=== PATIENT | female | born 1930 | race Hispanic/Latino ===

== ENCOUNTER 2018-03-24 23:15 | Observation (INO) | payer MEDICARE ==
[2018-03-24 23:16] VITALS: BMI 22.4
[2018-03-25 00:26] LABS: BASO # 0.01 K/mm3 (0.0-2.0); BASO % 0.2 % (0.0-3.0); EOS # 0.3 (0.0-0.7); EOS % 5.3 % (1.5-5.0); GRAN # 2.73 (1.4-6.5); GRAN % 46.2 % (50.0-68.0); HEMOGLOBIN 11.7 g/dL (12.0-16.0); LYMPH # 2.1 (1.2-3.4); LYMPH % 36.2 % (22.0-35.0); MEAN CELL VOLUME 95.7 fl (80.0-105.0); MEAN CORPUSCULAR HEMOGLOBIN 31.6 pg (25.0-35.0); MEAN CORPUSCULAR HGB CONC 33.1 g/dl (31.0-37.0); MEAN PLATELET VOLUME 9.5 fl (7.0-11.0); MONO # 0.7 (0.1-0.6); MONO % 12.1 % (1.0-6.0); RBC 3.7 10^6/uL (3.5-6.1); RED CELL DISTRIBUTION WIDTH 12.9 % (11.5-14.5); WHITE BLOOD COUNT 5.9 10^3/uL (4.5-11.0)
[2018-03-25 00:30] LABS: INR 0.97; PARTIAL THROMBOPLASTIN TIME 25.1 Seconds (25.1-36.5)
[2018-03-25 00:33] LABS: ALB/GLOB RATIO 1.4 (1.1-1.8); ALBUMIN 4.4 g/dL (3.0-4.8); ALT/SGPT 34 U/L (7-56); AST/SGOT 29 U/L (14-36); BLOOD UREA NITROGEN 14 mg/dL (7-21); CALCIUM 9.7 mg/dL (8.4-10.5); GFR NON-AFRICAN AMERICAN > 60
[2018-03-25 00:43] LABS: TROPONIN I < 0.01 ng/mL
--- NOTE | 2018-03-25 00:58 | ED PDOC ---
Arrival/HPI - General Historian: Patient - History of Present Illness Narrative History of Present Illness (Text): 03/25/18 00:53 87yo female with pmhx of hypertension, diabetes who present with complaint of having syncope several times tonight from 1900. States she did not fell to the ground, because it happened while she was seating on a seat. States her eyes has been hurting for few days. Denies focal weakness, visual changes, neck pain, headache, chest pain, SOB, recent URI, tinnitus, nausea, vomiting, abdominal pain, any other complaint. Symptom Onset: Gradual Symptom Course: Unchanged Activities at Onset: Light Context: Home <Mark Michael A - Last Filed: 03/25/18 01:50> <Conrad Oakes - Last Filed: 03/26/18 11:28> - General Chief Complaint: Syncope Past Medical History - Provider Review Nursing Documentation Reviewed: Yes - Infectious Disease Hx of Infectious Diseases: None - Tetanus Immunization Tetanus Immunization: Unknown - Reproductive Menopause: Yes - Cardiac Hx Hypertension: Yes - Endocrine/Metabolic Hx Diabetes Mellitus Type 2: Yes - Psychiatric Hx Psychophysiologic Disorder: No Hx Substance Use: No - Past Surgical History Past Surgical History: Unable to Obtain - Surgical History Hx Cholecystectomy: Yes Hx Hysterectomy: Yes - Anesthesia Hx Anesthesia: Yes - Suicidal Assessment Feels Threatened In Home Enviroment: No <Mark Michael A - Last Filed: 03/25/18 01:50> Family/Social History - Physician Review Nursing Documentation Reviewed: Yes Family/Social History: Unknown Family HX Smoking Status: Unknown If Ever Smoked Hx Alcohol Use: No Hx Substance Use: No Hx Substance Use Treatment: No <Mark Michael A - Last Filed: 03/25/18 01:50> Allergies/Home Meds <Mark Michael A - Last Filed: 03/25/18 01:50> <Conrad Oakes - Last Filed: 03/26/18 11:28> Allergies/Adverse Reactions: Allergies erythromycin base Allergy (Verified 03/24/18 23:42) SWELLING Home Medications: Home Meds Medication Instructions Recorded Confirmed Benazepril HCl [Lotensin] 20 mg PO DAILY 03/24/18 03/25/18 MetFORMIN [glucOPHAGE] 500 mg PO BID 03/24/18 03/25/18 Metoprolol Tartrate [Lopressor] 25 mg PO BID 03/24/18 03/25/18 RX: Aspirin [Aspirin Chewable] 81 mg PO DAILY 03/24/18 03/25/18 amLODIPine [Norvasc] 10 mg PO DAILY 03/24/18 03/25/18 Review of Systems - Physician Review All systems were reviewed & negative as marked: Yes - Review of Systems Constitutional: Normal. absent: Fevers Eyes: Normal ENT: Normal Respiratory: Normal Cardiovascular: Normal Genitourinary Female: Normal Musculoskeletal: Normal Skin: Normal Neurological: Other (Syncope) Endocrine: Normal Hemo/Lymphatic: Normal Psychiatric: Normal <Diru,Happiness A - Last Filed: 03/25/18 01:50> Physical Exam Vital Signs Reviewed: Yes Vital Signs Temp Pulse Resp BP Pulse Ox 03/25/18 00:20 80 17 163/82 H 98 03/24/18 23:36 97.6 F 94 H 18 206/86 H 98 Temperature: Afebrile Blood Pressure: Hypertensive Pulse: Regular Respiratory Rate: Normal Appearance: Positive for: Well-Appearing, Non-Toxic, Comfortable Pain Distress: None Mental Status: Positive for: Alert and Oriented X 3 - Systems Exam Head: Present: Atraumatic, Normocephalic Pupils: Present: PERRL Extroacular Muscles: Present: EOMI Conjunctiva: Present: Normal Mouth: Present: Moist Mucous Membranes Neck: Present: Normal Range of Motion Respiratory/Chest: Present: Clear to Auscultation, Good Air Exchange. No: Respiratory Distress, Accessory Muscle Use Cardiovascular: Present: Regular Rate and Rhythm, Normal S1, S2. No: Murmurs Abdomen: No: Tenderness, Distention, Peritoneal Signs Back: Present: Normal Inspection Upper Extremity: Present: Normal Inspection. No: Cyanosis, Edema Lower Extremity: Present: Normal Inspection. No: Edema Neurological: Present: GCS=15, CN II-XII Intact, Speech Normal, Motor Func Grossly Intact, Normal Sensory Function, Normal Cerebellar Funct, Norm Deep Tendon Reflexes, Gait Normal, Memory Normal, Normal 2Pt Descrimination, Other (No focal neurological deficit) Skin: Present: Warm, Dry, Normal Color. No: Rashes Psychiatric: Present: Alert, Oriented x 3, Normal Insight, Normal Concentration <Diru,Happiness A - Last Filed: 03/25/18 01:50> Vital Signs Temp Pulse Resp BP Pulse Ox 03/25/18 01:05 75 17 155/82 H 98 03/25/18 00:20 80 17 163/82 H 98 03/24/18 23:36 97.6 F 94 H 18 206/86 H 98 <Conrad Oakes - Last Filed: 03/26/18 11:28> Medical Decision Making ED Course and Treatment: 03/25/18 01:50 87yo female in ED for multiple syncopal episodes since 1900. Labs Head Ct Chest xray EKG Head CT will reassess Pt have no focal neurological deficit in ED EKG NSR @ 87bpm Prolonged QT Chest xray NAD Labs was unremarkable Head CT - No acute finding PT was admitted to r/o cardiac or neuro etiology. Case was DW Dr. Nieto who is covering Dr. Pitts and pt was admitted. Plan and result was DW the pt and she agreed. - Lab Interpretations Lab Results: 03/25/18 00:09 03/25/18 00:09 Lab Results 03/25/18 00:09: Sodium 139, Potassium 3.9, Chloride 104, Carbon Dioxide 26, Anion Gap 13, BUN 14, Creatinine 0.7, Est GFR ( Amer) > 60, Est GFR (Non- Af Amer) > 60, Random Glucose 135 H, Calcium 9.7, Phosphorus 3.8, Magnesium 2.0, Total Bilirubin 0.5, AST 29, ALT 34, Alkaline Phosphatase 92, Lactate Dehydrogenase 443, Total Creatine Kinase 78, Troponin I < 0.01, Total Protein 7.6, Albumin 4.4, Globulin 3.2, Albumin/Globulin Ratio 1.4 03/25/18 00:09: PT 11.0, INR 0.97, APTT 25.1 03/25/18 00:09: WBC 5.9, RBC 3.70, Hgb 11.7 L, Hct 35.4 L, MCV 95.7, MCH 31.6, MCHC 33.1, RDW 12.9, Plt Count 212, MPV 9.5, Gran % 46.2 L, Lymph % (Auto) 36.2 H, [place] % (Auto) 12.1 H, Eos % (Auto) 5.3 H, Baso % (Auto) 0.2, Gran # 2.73, Lymph # (Auto) 2.1, [place] # (Auto) 0.7 H, Eos # (Auto) 0.3, Baso # (Auto) 0.01 - RAD Interpretation Narrative RAD Interpretations (Text): CT Head: There is normal configuration of sella turcica. There are no intra or extra- axial collections. There is no mass effect or midline shift. There is no evidence of hematoma formation. No hydrocephalus is present. The ventricles are symmetrical. No abnormal calcifications are present. There is diffuse age-appropriate cerebellar and cerebral atrophy with proportion ally dilated ventricles and cortical sulci. There are bilateral periventricular and subcortical white matter hypolucencies compatible with mild chronic microvascular disease. Otherwise, no significant focal abnormalities are seen either in the posterior fossa or supratentorial compartment. IMPRESSION: 1. Age-appropriate cerebellar and cerebral atrophy. 2. Mild chronic microvascular disease. 3. No evidence of acute intracranial pathology. Thank you for your kind referral of this patient. Electronically signed on Mar 25, 2018 1:24:05 AM EST by: Vicky Cartagena M.D., Certified by ABR, MSK, Neuroradiology Radiology Orders: 03/24/18 23:51 HEAD W/O CONTRAST [CT] Stat 03/24/18 23:52 CHEST PORTABLE [RAD] Stat Canceling Machine Operator: Radiologist <Mark Michael - Last Filed: 03/25/18 01:50> - Lab Interpretations Lab Results: 03/25/18 00:09 03/25/18 00:09 Lab Results 03/25/18 00:09: TSH 3rd Generation 4.57 03/25/18 00:09: Sodium 139, Potassium 3.9, Chloride 104, Carbon Dioxide 26, Anion Gap 13, BUN 14, Creatinine 0.7, Est GFR ( Amer) > 60, Est GFR (Non- Af Amer) > 60, Random Glucose 135 H, Calcium 9.7, Phosphorus 3.8, Magnesium 2.0, Total Bilirubin 0.5, AST 29, ALT 34, Alkaline Phosphatase 92, Lactate Dehydrogenase 443, Total Creatine Kinase 78, Troponin I < 0.01, Total Protein 7.6, Albumin 4.4, Globulin 3.2, Albumin/Globulin Ratio 1.4 03/25/18 00:09: PT 11.0, INR 0.97, APTT 25.1 03/25/18 00:09: WBC 5.9, RBC 3.70, Hgb 11.7 L, Hct 35.4 L, MCV 95.7, MCH 31.6, MCHC 33.1, RDW 12.9, Plt Count 212, MPV 9.5, Gran % 46.2 L, Lymph % (Auto) 36.2 H, [place] % (Auto) 12.1 H, Eos % (Auto) 5.3 H, Baso % (Auto) 0.2, Gran # 2.73, Ly mph # (Auto) 2.1, [place] # (Auto) 0.7 H, Eos # (Auto) 0.3, Baso # (Auto) 0.01 - RAD Interpretation Radiology Orders: 03/24/18 23:51 HEAD W/O CONTRAST [CT] Stat 03/24/18 23:52 CHEST PORTABLE [RAD] Stat - Medication Orders Current Medication Orders: Discontinued Medications Amlodipine Besylate (Norvasc) 10 mg PO DAILY [facility] Last Admin: 03/25/18 09:56 Dose: 10 mg MAR Blood Pressure Document 03/25/18 09:56 CD (Rec: 03/25/18 09:56 CD [facility] [id number] Blood Pressure Blood Pressure (100/60-150/90) 190/96 Aspirin (Aspirin Chewable) 81 mg PO DAILY [facility] Last Admin: 03/25/18 09:56 Dose: 81 mg Guaifenesin/Dextromethorphan (Mucinex-Dm 600-30 Mg) 1 tab PO BID [facility] Last Admin: 03/25/18 09:56 Dose: 1 tab Lisinopril (Zestril) 20 mg PO DAILY [facility] Last Admin: 03/25/18 09:56 Dose: 20 mg MAR Pulse and Blood Pressure Document 03/25/18 09:56 CD (Rec: 03/25/18 09:56 CD [facility] [id number] Pulse Pulse Rate (60-90) 105 Blood Pressure Blood Pressure (100/60-150/90) 190/96 Metformin HCl (Glucophage) 500 mg PO BID [facility] Last Admin: 03/25/18 09:56 Dose: 500 mg Metoprolol Tartrate (Lopressor) 5 mg IVP ONCE ONE Stop: 03/25/18 05:44 Last Admin: 03/25/18 05:52 Dose: 5 mg IVP Administration Document 03/25/18 05:52 CDL (Rec: 03/25/18 05:53 CDL [facility] [id number] Charges for Administration # of IVP Administrations 1 MAR Pulse and Blood Pressure Document 03/25/18 05:52 CDL (Rec: 03/25/18 05:53 CDL [facility] [id number]) Pulse Pulse Rate (60-90) 142 Blood Pressure Blood Pressure (100/60-150/90) 184/106 Metoprolol Tartrate (Lopressor) 25 mg PO BID [facility] Last Admin: 03/25/18 09:56 Dose: 25 mg MAR Pulse and Blood Pressure Document 03/25/18 09:56 CD (Rec: 03/25/18 09:56 CD [facility] [id number]) Pulse Pulse Rate (60-90) 105 Blood Pressure Blood Pressure (100/60-150/90) 190/96 <Conrad Oakes - Last Filed: 03/26/18 11:28> - PA / LAMINATING MACHINE OPERATOR / Resident Statement / has reviewed & agrees with the documentation as recorded. <Conrad Oakes - Last Filed: 03/26/18 11:28> Disposition/Present on Arrival - Present on Arrival Any Indicators Present on Arrival: No History of DVT/PE: No History of Uncontrolled Diabetes: No Urinary Catheter: No History of Decub. Ulcer: No History Surgical Site Infection Following: None - Disposition Have Diagnosis and Disposition been Completed?: Yes Disposition Time: 00:40 Patient Plan: Admission <Mark Michael - Last Filed: 03/25/18 01:50> <Conrad Oakes - Last Filed: 03/26/18 11:28> - Disposition Diagnosis: Syncope Disposition: HOSPITALIZED Condition: FAIR
[2018-03-25 01:50] LABS: PH,URINE 6.5 (4.7-8.0); URINE BILIRUBIN NEGATIVE (NEGATIVE); URINE BLOOD TRACE-INTACT (NEGATIVE); URINE GLUCOSE (UA) NEGATIVE (NEGATIVE); URINE LEUKOCYTE ESTERASE SMALL Leu/uL (NEGATIVE); URINE PROTEIN NEGATIVE mg/dL (<30 mg/dL); URINE UROBILINOGEN 0.2 E.U./dL (<1 E.U./dL)
[2018-03-25 01:56] LABS: URINE APPEARANCE SL CLOUDY (CLEAR); URINE COLOR YELLOW (YELLOW)
[2018-03-25 02:07] LABS: URINE RBC 0 - 2 /hpf (0-2)
[2018-03-25 02:08] LABS: URINE BACTERIA FEW (NEG)
[2018-03-25] MEDS ORDERED: Metoprolol 1 mg/ml Inj IVP ONE (05:43)
[2018-03-25 05:59] VITALS: RESP 18; TEMP 98.8; O2SAT 97
--- NOTE | 2018-03-25 09:08 | RAD ---
Date of service: 03/25/2018 HISTORY: admission COMPARISON: 07/30/2016 FINDINGS: LUNGS: No active pulmonary disease. PLEURA: No significant pleural effusion identified, no pneumothorax apparent. CARDIOVASCULAR: No aortic atherosclerotic calcification present. Normal cardiac size. No pulmonary vascular congestion. OSSEOUS STRUCTURES: No significant abnormalities. VISUALIZED UPPER ABDOMEN: Normal. OTHER FINDINGS: None. IMPRESSION: No active disease.
[2018-03-25 09:59] VITALS: BP 190/96
[2018-03-25] MEDS ORDERED: guaiFENesin-DM 600-30 mg ER Tab PO SCH (10:00)
--- NOTE | 2018-03-25 10:15 | CT ---
Date of service: 03/25/2018 PROCEDURE: CT HEAD WITHOUT CONTRAST. HISTORY: syncope COMPARISON: 11/23/2014 TECHNIQUE: Axial computed tomography images were obtained through the head/brain without intravenous contrast. Radiation dose: Total exam DLP = 673.34 mGy-cm. This CT exam was performed using one or more of the following dose reduction techniques: Automated exposure control, adjustment of the mA and/or kV according to patient size, and/or use of iterative reconstruction technique. FINDINGS: HEMORRHAGE: No intracranial hemorrhage. BRAIN: No mass effect or edema. No atrophy or chronic microvascular ischemic changes. VENTRICLES: Unremarkable. No hydrocephalus. CALVARIUM: Unremarkable. PARANASAL SINUSES: Unremarkable as visualized. No significant inflammatory changes. MASTOID AIR CELLS: Unremarkable as visualized. No inflammatory changes. OTHER FINDINGS: The report concurs with the preliminary [facility] report IMPRESSION: No acute intracranial findings
--- NOTE | 2018-03-25 10:29 | HP ---
DATE OF EXAM: 03/25/2018 HISTORY OF PRESENT ILLNESS: Mrs. Woodruff is a 87-year-old female admitted to the hospital with syncope. She was sitting in the chair. She felt lightheaded. She did not fell. Denies any focal weakness. No headache. No nausea. No vomiting. No vision changes. She has history of hypertension uncontrolled during this hospitalization. Systolic blood pressure was 200 mmHg in the ER. No fever. No cough with expectoration. She has diabetes mellitus type 2, currently controlled on metformin only. No complaints right now. PAST MEDICAL HISTORY: Diabetes mellitus type 2 and hypertension. PAST SURGICAL HISTORY: Cholecystectomy and hysterectomy. FAMILY HISTORY: Noncontributory. PERSONAL HISTORY: Never smoked. No history of alcohol abuse. ALLERGIES: ERYTHROMYCIN. HOME MEDICATION: Aspirin 81 mg daily, benazepril 20 mg daily, metformin 500 mg p.o. b.i.d., metoprolol 25 mg p.o. b.i.d., amlodipine 10 mg daily. REVIEW OF SYSTEM: As per HPI. Rest of 12-point review of systems reviewed, negative. PHYSICAL EXAMINATION: GENERAL: Comfortable in bed in no acute distress. VITAL SIGNS: Temperature 97.6, heart rate 80 per minute, respiratory 18 per minute, blood pressure 160/80 and pulse ox is 98% on room air. HEENT: Pallor positive. NECK: No lymphadenopathy. CHEST: Air entry present and equal bilaterally. No added sounds. CARDIOVASCULAR: S1 and S2 normal. No murmur. No gallop. ABDOMEN: Soft and nontender. No hepatosplenomegaly. EXTREMITIES: No edema. REAL ESTATE SALES AGENT: Alert and oriented x3. No focal sensory motor deficit. Cranial nerves intact. SKIN: Warm . No rashes. SPINE: Nontender. LABORATORY DATA: White count 5.9, hemoglobin 11.7, hematocrit 35.4 and platelet 212,000. Sodium 139, potassium 3.9, BUN 14, creatinine 0 7 and glucose 135. Bilirubin 0.5, AST 29, ALT 34 and alkaline phosphatase 92. EKG normal sinus rhythm. CT head, age appropriate cerebellar and cerebral atrophy, chronic microvascular changes. No evidence of acute intracranial pathology. ASSESSMENT: 1. Syncope. 2. Anemia. 3. Uncontrolled hypertension. PLAN: She will be admitted to the hospital. We will continue the home meds, metoprolol 25 mg p.o. b.i.d. and Norvasc 10 mg daily. We will continue metformin 500 mg p.o. b.i.d. and aspirin 81 mg daily. Cardiac enzyme within normal limits. CT head unremarkable. We will observe for next 24 hours, if stable we will consider discharge home. Urine culture sent. UA mildly positive leukocyte esterase. Janine Nieto MD
[2018-03-25 12:22] VITALS: PULSE 93
--- NOTE | 2018-03-25 13:37 | DS ---
Please refer to the detailed note dictated today. She was admitted with vague complaints of having blackout for a fraction of a second which happened twice, did not have any residual weakness. CAT scan of the head was unremarkable. Troponins were negative. She is being discharged to home in a stable condition. She will follow up with the PCP, Dr. Portillo. Recommended follow up with Neurology, Dr. Horan, and follow up with Cardiology, Dr. Jim, her regular telecom specialist. She is being discharged to home in a stable condition. Detailed report of the discharge note dictated earlier under same date. Janine Nieto MD
--- NOTE | 2018-03-26 08:10 | CARD ---
APPROVED REPORT Date of service: 03/24/2018 EKG Measurement Heart [id number] <Conclusion> Normal sinus rhythm Prolonged QTc
== END 2018-03-25 14:29 | disposition home or self-care (01) ==
LOC: ED 23:15 → ERH 03-25 00:46 → 2RSO 03-25 01:54
PROVIDERS: ADMIT Internal Medicine Nephrology; ATTEND Internal Medicine Nephrology
DX: R55 Syncope and collapse (principal); I10 Essential (primary) hypertension; E11.9 Type 2 diabetes mellitus without complications; D64.9 Anemia, unspecified; Z79.82 Long term (current) use of aspirin; Z79.84 Long term (current) use of oral hypoglycemic drugs
CPT/HCPCS: 36415; 70450; 71045; 80053; 81001; 82550; 82948; 83615; 83735; 84100; 84443; 84484; 85025; 85610; 85730; 87086; 93005; 99285; G0378

== ENCOUNTER 2018-06-08 12:54 | Outpatient (CLI) | payer MEDICARE | END 2018-06-08 12:55 | disposition home or self-care (01) | LOC: LAB 12:54 ==

== ENCOUNTER 2018-06-18 10:06 | Outpatient (CLI) | payer MEDICARE | END 2018-06-18 10:07 | disposition home or self-care (01) | LOC: RAD 10:06 | DX: R55 Syncope and collapse (principal) ==

== ENCOUNTER 2018-07-29 09:48 | Emergency (ER) | payer MEDICARE ==
[2018-07-29 10:06] VITALS: BMI 23.6
[2018-07-29 10:22] VITALS: RESP 18; TEMP 98.2
--- NOTE | 2018-07-29 11:19 | ED PDOC ---
Arrival/HPI - General Chief Complaint: High Blood Pressure Time Seen by Provider: 07/29/18 10:05 Historian: Patient - History of Present Illness Narrative History of Present Illness (Text): 07/29/18 11:14 87 year old female, whose past medical history includes hypertension and diabetes, presents to the ED for high blood pressure since today. Patient reports her "face gets hot" secondary to hypertension. Patient notes that she is compliant with her hypertension medication, but that she has started a new one yesterday, upon request of her dairy nutrition consultant. Patient denies any chest pain, shortness of breath, headache, fever, chills, cough, nausea, vomiting, diarrhea, constipation, abdominal pain, dizziness or lightheadedness. PMD: Dr. Portillo Records Management Associate: Dr. Wilkinson Time/Duration: 4-6 hours Symptom Onset: Gradual Symptom Course: Unchanged Activities at Onset: Light Context: Home Past Medical History - Provider Review Nursing Documentation Reviewed: Yes - Infectious Disease Hx of Infectious Diseases: None - Tetanus Immunization Tetanus Immunization: Unknown - Reproductive Menopause: Yes - Cardiac Hx Cardiac Disorders: Yes Hx Hypertension: Yes - Pulmonary Hx Respiratory Disorders: No - Neurological Hx Neurological Disorder: No - HEENT Hx HEENT Disorder: No - Renal Hx Renal Disorder: No - Endocrine/Metabolic Hx Endocrine Disorders: Yes Hx Diabetes Mellitus Type 2: Yes - Hematological/Oncological Hx Blood Disorders: No - Integumentary Hx Dermatological Disorder: No - Musculoskeletal/Rheumatological Hx Musculoskeletal Disorders: No Hx Falls: No - Gastrointestinal Hx Gastrointestinal Disorders: No - Genitourinary/Gynecological Hx Genitourinary Disorders: No - Psychiatric Hx Psychophysiologic Disorder: No Hx Substance Use: No - Past Surgical History Past Surgical History: Unable to Obtain - Surgical History Hx Cholecystectomy: Yes Hx Hysterectomy: Yes - Anesthesia Hx Anesthesia: Yes Hx Anesthesia Reactions: No Hx Malignant Hyperthermia: No - Suicidal Assessment Feels Threatened In Home Enviroment: No Family/Social History - Physician Review Nursing Documentation Reviewed: Yes Family/Social History: Unknown Family HX Smoking Status: Never Smoked Hx Alcohol Use: No Hx Substance Use: No Hx Substance Use Treatment: No Allergies/Home Meds Allergies/Adverse Reactions: Allergies erythromycin base Allergy (Verified 07/29/18 10:22) SWELLING Home Medications: Home Meds Medication Instructions Recorded Confirmed Aspirin [Aspirin Chewable] 81 mg PO DAILY 03/24/18 07/29/18 Benazepril HCl [Lotensin] 20 mg PO DAILY 03/24/18 07/29/18 MetFORMIN [glucOPHAGE] 500 mg PO BID 03/24/18 07/29/18 Metoprolol Tartrate [Lopressor] 25 mg PO BID 03/24/18 07/29/18 amLODIPine [Norvasc] 10 mg PO DAILY 03/24/18 07/29/18 Review of Systems - Physician Review All systems were reviewed & negative as marked: Yes - Review of Systems Constitutional: absent: Fevers Eyes: absent: Vision Changes ENT: absent: Hearing Changes, Sore Throat, Rhinorrhea Respiratory: absent: SOB, Cough Cardiovascular: Other (Elevated blood pressure). absent: Chest Pain Gastrointestinal: absent: Abdominal Pain, Constipation, Diarrhea, Nausea, Vomiting Genitourinary Female: absent: Dysuria, Vaginal Bleeding Musculoskeletal: absent: Back Pain, Neck Pain Skin: absent: Rash Neurological: absent: Headache, Dizziness Endocrine: absent: Diaphoresis Hemo/Lymphatic: absent: Adenopathy Psychiatric: absent: Anxiety, Depression Physical Exam - Physical Exam Narrative Physical Exam (Text): 07/29/18 11:24 Gen: VS reviewed, alert, well developed, well nourished, nontoxic, mild distress ENT: normal pharynx Eye: EOMI, PERRL Neck: no JVD, supple, no adenopathy CV: regular rate, regular rhythm, no rubs, no murmur, no gallops, S1, S2, pulses, equal and strong Pulm: no distress, clear to auscultation, no wheeze, no rhonchi, breath sounds equal, no rales Abd: soft, nontender, no guarding, no rebound, no rigidity, normal bowel sounds Ext: no edema Skin: good color, no rash, no cyanosis Psych: responds appropriately to questions, normal affect Neuro: oriented x 3, CN2-12 intact grossly, motor intact, sensation intact Vital Signs Reviewed: Yes Vital Signs Temp Pulse Resp BP Pulse Ox 07/29/18 11:11 98.2 F 89 18 155/74 H 99 07/29/18 10:18 98.2 F 93 H 18 96/60 L 98 Temperature: Afebrile Blood Pressure: Normal Pulse: Regular Respiratory Rate: Normal Appearance: Positive for: Well-Appearing, Non-Toxic, Comfortable Pain Distress: Mild Mental Status: Positive for: Alert and Oriented X 3 Medical Decision Making ED Course and Treatment: 07/29/18 11:25 Impression: 87 year old female who presents to the ED for hypertension. Plan: -- Monitor BP -- Reassess and disposition Prior Visits: Notes and results from previous visits were reviewed. Patient was last seen in the emergency department on 03/25/18. Progress Notes: 07/29/18 11:56 07/29/18 12:22 patient remained symptom free during ED course. blood pressure stable throughout ED course. patient to follow up with pcp and cardiology for elevated blood pressure.no intervention indicated for blood pressure stable for dc. - EKG Interpretation EKG Interpretation (Text): 07/29/18 10:10 NSR @ 94 bpm, nml qrs, nml axis, no acute sttw abn. Interpreted by ED Physician: Yes Type: 12 lead EKG - Scribe Statement The provider has reviewed the documentation as recorded by the Scribe Jennifer lizarraga with [facility]. All medical record entries made by the Scribe were at my direction and personally dictated by me. I have reviewed the chart and agree that the record accurately reflects my personal performance of the history, physical exam, medical decision making, and the department course for this patient. I have also personally directed, reviewed, and agree with the discharge instructions and disposition. Disposition/Present on Arrival - Present on Arrival Any Indicators Present on Arrival: No History of DVT/PE: No History of Uncontrolled Diabetes: No Urinary Catheter: No History of Decub. Ulcer: No History Surgical Site Infection Following: None - Disposition Have Diagnosis and Disposition been Completed?: Yes Diagnosis: Hypertension Disposition: HOME/ ROUTINE Disposition Time: 12:23 Patient Plan: Discharge Condition: STABLE Discharge Instructions (ExitCare): High Blood Pressure (DC) Additional Instructions: follow up with your regular doctor as soon as possible. return for any new or worsening symptoms. Referrals: Paresh Portillo MD [Primary Care Provider] - Follow up with primary Forms: [employer] (Brazilian)
[2018-07-29 12:39] VITALS: BP 165/89; PULSE 73; O2SAT 97
--- NOTE | 2018-07-29 16:10 | CARD ---
APPROVED REPORT Date of service: 07/29/2018 EKG Measurement Heart [id number] <Conclusion> Normal sinus rhythm Normal ECG
== END 2018-07-29 12:53 | disposition home or self-care (01) ==
LOC: ED 09:48
DX: I10 Essential (primary) hypertension (principal)

== ENCOUNTER 2018-07-30 07:43 | Emergency (ER) | payer MEDICARE ==
[2018-07-30 07:44] VITALS: BMI 23.6
[2018-07-30 07:52] VITALS: RESP 18; O2SAT 99
[2018-07-30] MEDS ORDERED: Mineral Oil Enema 135 ml RC ONE (07:55)
[2018-07-30] MEDS ORDERED: Magnesium Citrate Oral SOL (300 ml) PO ONE (07:55)
--- NOTE | 2018-07-30 08:20 | ED PDOC ---
Arrival/HPI - General Chief Complaint: GI Problem Time Seen by Provider: 07/30/18 07:49 Historian: Patient - History of Present Illness Narrative History of Present Illness (Text): 07/30/18 08:17 87 year old female, with a past medical history of hypertension and diabetes presenting to the emergency department complaining of difficulty moving bowels for 1 week. Patient reports she was sent by Dr. Saravia. She reports ingesting warm prune juice 4 days ago which assisted in passing stool. Since last night, she reports no bowel movement. She reports thin stool for 1 month. Patient denies any abdominal pain, but endorses a "strangling" and "twisting" sensation. She also denies having history of bowel obstruction or ever having a colonoscopy performed. Patient endorses she eats and drinks normally, but denies any fever, shortness of breath, vomiting, abdominal pain, chest pain or any other complaints. Patient reports compliance with her medications. PCP: Dr. Portillo Specialist: Dr. Saravia(GI) Time/Duration: 1 week Symptom Onset: Gradual Symptom Course: Unchanged Activities at Onset: Light Context: Home Past Medical History - Provider Review Nursing Documentation Reviewed: Yes - Travel History Have you recently traveled outside [place] w/in the past 3 mons?: No - Infectious Disease Hx of Infectious Diseases: None - Tetanus Immunization Tetanus Immunization: Unknown - Cardiac Hx Cardiac Disorders: Yes Hx Hypertension: Yes - Pulmonary Hx Respiratory Disorders: No - Neurological Hx Neurological Disorder: No - HEENT Hx HEENT Disorder: No - Renal Hx Renal Disorder: No - Endocrine/Metabolic Hx Endocrine Disorders: Yes Hx Diabetes Mellitus Type 2: Yes - Hematological/Oncological Hx Blood Disorders: No - Integumentary Hx Dermatological Disorder: No - Musculoskeletal/Rheumatological Hx Musculoskeletal Disorders: No Hx Falls: No - Gastrointestinal Hx Gastrointestinal Disorders: No - Genitourinary/Gynecological Hx Genitourinary Disorders: No - Psychiatric Hx Psychophysiologic Disorder: No Hx Substance Use: No - Past Surgical History Past Surgical History: Unable to Obtain - Surgical History Hx Cholecystectomy: Yes Hx Hysterectomy: Yes - Anesthesia Hx Anesthesia: Yes Hx Anesthesia Reactions: No Hx Malignant Hyperthermia: No - Suicidal Assessment Feels Threatened In Home Enviroment: No Family/Social History - Physician Review Nursing Documentation Reviewed: Yes Family/Social History: Unknown Family HX Smoking Status: Never Smoked Hx Alcohol Use: No Hx Substance Use: No Hx Substance Use Treatment: No Allergies/Home Meds Allergies/Adverse Reactions: Allergies erythromycin base Allergy (Verified 07/29/18 10:22) SWELLING Home Medications: Home Meds Medication Instructions Recorded Confirmed Aspirin [Aspirin Chewable] 81 mg PO DAILY 03/24/18 07/29/18 Benazepril HCl [Lotensin] 20 mg PO DAILY 03/24/18 07/29/18 MetFORMIN [glucOPHAGE] 500 mg PO BID 03/24/18 07/29/18 Metoprolol Tartrate [Lopressor] 25 mg PO BID 03/24/18 07/29/18 amLODIPine [Norvasc] 10 mg PO DAILY 03/24/18 07/29/18 Review of Systems - Physician Review All systems were reviewed & negative as marked: Yes - Review of Systems Constitutional: absent: Fevers Respiratory: absent: SOB, Cough Cardiovascular: absent: Chest Pain Gastrointestinal: Stool Changes (thin). absent: Abdominal Pain, Nausea, Vomiting Musculoskeletal: absent: Back Pain, Neck Pain Neurological: absent: Headache, Dizziness Endocrine: absent: Diaphoresis Physical Exam Vital Signs Reviewed: Yes Vital Signs Temp Pulse Resp BP Pulse Ox 07/30/18 07:48 97.9 F 89 18 153/98 H 99 Temperature: Afebrile Blood Pressure: Hypertensive Pulse: Regular Respiratory Rate: Normal Appearance: Positive for: Well-Appearing, Non-Toxic, Comfortable Pain Distress: None Mental Status: Positive for: Alert and Oriented X 3 - Systems Exam Head: Present: Atraumatic, Normocephalic Pupils: Present: PERRL Extroacular Muscles: Present: EOMI Conjunctiva: Present: Normal Mouth: Present: Moist Mucous Membranes Neck: Present: Normal Range of Motion Respiratory/Chest: Present: Clear to Auscultation, Good Air Exchange. No: Respiratory Distress, Accessory Muscle Use Cardiovascular: Present: Regular Rate and Rhythm, Normal S1, S2. No: Murmurs Abdomen: Present: Other (periumbilical pain). No: Tenderness, Distention, Peritoneal Signs, Guarding Back: Present: Normal Inspection Upper Extremity: Present: Normal Inspection. No: Cyanosis, Edema Lower Extremity: Present: Normal Inspection. No: Edema Neurological: Present: GCS=15, CN II-XII Intact, Speech Normal Skin: Present: Warm, Dry, Normal Color. No: Rashes Psychiatric: Present: Alert, Oriented x 3, Normal Insight, Normal Concentration Medical Decision Making ED Course and Treatment: 07/30/18 08:15 Impression: 87 year old female presents to the emergency department complaining of difficulty moving bowels for 1 week. Differential Diagnosis included but are not limited to: --Constipation --SBO Plan: -- Magnesium citrate -- X-Ray abdomen -- Mineral oil -- Urinalysis -- X-ray abdomen -- IV Fluids --Senna --Zofran -- Labs -- Reassess and disposition Prior Visits: Notes and results from previous visits were reviewed. Progress Notes: 07/30/18 10:21 Patient states she was able to move bowels a little bit. She reports some nausea and some fullness. Zofran and Senna ordered. 07/30/18 14:43 Attempt at manual disimpaction performed with only watery stool and no evidence of hardened stool within ear canal. She is instructed to follow up with her GI specialist, Dr. Saravia. She denies any emesis at this time. She is stable for discharge. - RAD Interpretation Narrative RAD Interpretations (Text): 07/30/18 10:16 X-ray abdomen reviewed by radiologist, shows: No active disease. Radiology Orders: 07/30/18 07:55 ABDOMEN (FLAT PLATE) 1VIEW [RAD] Stat Nail Galvanizer: Radiologist - Medication Orders Current Medication Orders: Discontinued Medications Magnesium Citrate (Citrate Of Mag) 300 ml PO ONCE ONE Stop: 07/30/18 07:56 Mineral Oil (Fleet Mineral Oil Enema) 135 ml RC ONCE ONE Stop: 07/30/18 07:56 - Scribe Statement The provider has reviewed the documentation as recorded by the Jorge L Jo [facility] All medical record entries made by the Jorge L were at my direction and personally dictated by me. I have reviewed the chart and agree that the record accurately reflects my personal performance of the history, physical exam, medical decision making, and the department course for this patient. I have also personally directed, reviewed, and agree with the discharge instructions and disposition. Disposition/Present on Arrival - Present on Arrival Any Indicators Present on Arrival: No History of DVT/PE: No History of Uncontrolled Diabetes: No Urinary Catheter: No History of Decub. Ulcer: No History Surgical Site Infection Following: None - Disposition Have Diagnosis and Disposition been Completed?: Yes Diagnosis: Constipation Disposition: HOME/ ROUTINE Disposition Time: 14:48 Patient Plan: Discharge Condition: IMPROVED Discharge Instructions (ExitCare): Constipation, Adult (DC) Print Language: VIETNAMESE Additional Instructions: All medical record entries made by the Scribe were at my direction and personally dictated by me. I have reviewed the chart and agree that the record accurately reflects my personal performance of the history, physical exam, medical decision making, and the department course for this patient. I have also personally directed, reviewed, and agree with the discharge instructions and disposition. Please follow up with Dr. Saravia Prescriptions: Docusate Sodium [Colace] 100 mg PO Q8H #12 capsule Magnesium Citrate [Citrate of Mag] 300 ml PO ONCE #2 bottle Mineral Oil [Fleet Mineral Oil Enema 135 Ml] 135 ml RC ONCE #2 nma Sennosides [Senna] 8.6 mg PO Q8H #10 tablet Referrals: Conrad Saravia MD [Staff Provider] - Follow up with primary Forms: [employer] (Australian)
--- NOTE | 2018-07-30 10:04 | RAD ---
Date of service: 07/30/2018 HISTORY: constipation w/ abdominal pain COMPARISON: None available. TECHNIQUE: 1 view obtained. FINDINGS: BOWEL: Normal. No obstruction. No free air. BONES: Normal. OTHER FINDINGS: None. IMPRESSION: No active disease.
[2018-07-30] MEDS ORDERED: POLYETHYLENE GLYCOL 3350 17 GM/Dose PACKET PO STA (11:37)
[2018-07-30 15:00] VITALS: BP 128/70; PULSE 78; TEMP 98
== END 2018-07-30 14:59 | disposition home or self-care (01) ==
LOC: ED 07:43
DX: K59.00 Constipation, unspecified (principal)

== ENCOUNTER 2018-08-13 08:14 | Emergency (ER) | payer MEDICARE ==
[2018-08-13 08:15] VITALS: BMI 22.9
[2018-08-13 08:36] VITALS: RESP 18
[2018-08-13] MEDS ORDERED: Iohexol 240 (50 ml) ONE (09:50)
--- NOTE | 2018-08-13 09:51 | ED PDOC ---
Arrival/HPI - General Chief Complaint: GI Problem - History of Present Illness Narrative History of Present Illness (Text): 87 yr old female w/ hx of HLD, HTN, constipation p/w nausea, "feeling sick" in belly. Pt notes 1 month of intermittent abdominal pain described as feeling sick in the stomach. Pt denies any recent fall or trauma and notes that she came in today because she has been having dry heaves since last night. She notes she has an appointment with Dr. Saravia next week for a colonscopy. Denies any headache, chest pain or shortness of breath. No rashes. No dark or bloody stool No other complaints. GI: Dr. Saravia PMD: Dr. Portillo Past Medical History - Infectious Disease Hx of Infectious Diseases: None - Tetanus Immunization Tetanus Immunization: Unknown - Reproductive Menopause: Yes - Cardiac Hx Hypertension: Yes Hx Pacemaker: No - Pulmonary Hx Respiratory Disorders: No - Neurological Hx Neurological Disorder: No - HEENT Hx HEENT Disorder: No - Renal Hx Renal Disorder: No - Endocrine/Metabolic Hx Endocrine Disorders: Yes Hx Diabetes Mellitus Type 2: Yes - Hematological/Oncological Hx Blood Transfusions: No - Integumentary Hx Dermatological Disorder: No - Musculoskeletal/Rheumatological Hx Musculoskeletal Disorders: No - Gastrointestinal Hx Gastrointestinal Disorders: No - Genitourinary/Gynecological Hx Genitourinary Disorders: No - Psychiatric Hx Emotional Abuse: No Hx Physical Abuse: No Hx Substance Use: No - Past Surgical History Past Surgical History: Unable to Obtain - Surgical History Hx Cholecystectomy: Yes Hx Hysterectomy: Yes - Anesthesia Hx Anesthesia Reactions: No Hx Malignant Hyperthermia: No - Suicidal Assessment Feels Threatened In Home Enviroment: No Family/Social History Family/Social History: Unknown Family HX Smoking Status: Never Smoked Hx Alcohol Use: No Hx Substance Use: No Hx Substance Use Treatment: No Allergies/Home Meds Allergies/Adverse Reactions: Allergies erythromycin base Allergy (Verified 07/29/18 10:22) SWELLING Home Medications: Home Meds Medication Instructions Recorded Confirmed Benazepril HCl [Lotensin] 20 mg PO DAILY 03/24/18 08/13/18 MetFORMIN [glucOPHAGE] 500 mg PO BID 03/24/18 08/13/18 Metoprolol Tartrate [Lopressor] 25 mg PO BID 03/24/18 08/13/18 amLODIPine [Norvasc] 10 mg PO DAILY 03/24/18 08/13/18 Polyethylene Glycol 3350 [Miralax] 17 gm PO DAILY 08/12/18 08/13/18 Spironolactone [Aldactone] 25 mg PO DAILY 08/12/18 08/13/18 Review of Systems - Review of Systems Constitutional: absent: Fatigue, Weight Change, Fevers Eyes: absent: Vision Changes, Photophobia, Eye Pain ENT: absent: Hearing Changes, Tinnitus Respiratory: absent: SOB, Cough Cardiovascular: absent: Chest Pain, Palpitations Gastrointestinal: Abdominal Pain, Stool Changes (decreased caliber), Constipation (had a bm earlier, watery, no recent abx). absent: Diarrhea, Nausea, Vomiting Genitourinary Female: absent: Dysuria, Frequency Musculoskeletal: absent: Arthralgias, Back Pain, Neck Pain Skin: absent: Rash Physical Exam Vital Signs Temp Pulse Resp BP Pulse Ox 08/13/18 08:28 98 F 78 18 162/91 H 99 Temperature: Afebrile Blood Pressure: Hypertensive Pulse: Regular Respiratory Rate: Normal Appearance: Positive for: Well-Appearing Pain Distress: Mild Mental Status: Positive for: Alert and Oriented X 3 - Systems Exam Head: Present: Atraumatic Pupils: Present: PERRL Extroacular Muscles: Present: EOMI Conjunctiva: Present: Normal Ears: Present: Normal, NORMAL TM Mouth: Present: Moist Mucous Membranes Pharnyx: Present: Normal. No: ERYTHEMA, EXUDATE, TONSILS ENLARGED Neck: Present: Normal Range of Motion. No: Meningeal Signs, MIDLINE TENDERNESS Respiratory/Chest: Present: Clear to Auscultation, Good Air Exchange. No: Respiratory Distress Cardiovascular: Present: Regular Rate and Rhythm, Normal S1, S2. No: Murmurs Abdomen: Present: Tenderness, Normal Bowel Sounds. No: Distention, Peritoneal Signs (llq), Rebound, Guarding Back: Present: Normal Inspection. No: CVA Tenderness, Midline Tenderness Upper Extremity: Present: Normal Inspection, NORMAL PULSES, Neurovascularly Intact Lower Extremity: Present: Normal Inspection, NORMAL PULSES, Neurovascularly Intact Neurological: Present: GCS=15, CN II-XII Intact, Speech Normal Skin: Present: Warm, Dry Psychiatric: Present: Alert, Oriented x 3, Normal Insight Medical Decision Making ED Course and Treatment: 87 yr old female p/w decreased stool caliber, nausea, vomiting x1 month. LLQ mild pain on exam. Has an appointment for colonscopy next week. Given LLQ pain and decreased stool caliber ?Mass. Will seek CT. Pt in NAD, no dark or bloody stool. No recent abx. Pending imaging and labs EKG 53, sinus alondra, no stemi 08/13/18 13:07 ct unremarkable uti, no cvat, no midline pain labs otherwise unreamrkable repeat exam unremarakble. abd non-ttp on re-exam clear for d.c home with return indications and f/u also endorsed to pt blood in urine and need to f/u PMD and urologist from PMD - RAD Interpretation Radiology Orders: 08/13/18 09:44 ABDOMEN & PELVIS [ABD PELVIS PO & IV CONTRAST] [CT] Stat - Medication Orders Current Medication Orders: Discontinued Medications Famotidine (Pepcid) 20 mg IVP STAT STA Stop: 08/13/18 09:46 Ondansetron HCl (Zofran Inj) 4 mg IVP STAT STA Stop: 08/13/18 09:45 Disposition/Present on Arrival - Present on Arrival Any Indicators Present on Arrival: No History of DVT/PE: No History of Uncontrolled Diabetes: No Urinary Catheter: No History of Decub. Ulcer: No History Surgical Site Infection Following: None - Disposition Have Diagnosis and Disposition been Completed?: Yes Diagnosis: UTI (urinary tract infection) Disposition: HOME/ ROUTINE Disposition Time: 13:02 Condition: STABLE Discharge Instructions (ExitCare): Urinary Tract Infection, Adult (DC) Additional Instructions: FOLLOW UP WITH YOUR PRIMARY CARE DOCTOR AND YOUR GI DOCTOR. RETURN IF ANY OTHER ISSUES DEEPAK FUENTES, thank you for letting us take care of you today. Your provider was Colin Chi and you were treated for constipation. The emergency medical care you received today was directed at your acute symptoms. If you were prescribed any medication, please fill it and take as directed. It may take several days for your symptoms to resolve. Return to the Emergency Department if your symptoms worsen, do not improve, or if you have any other problems. Please contact your doctor or call one of the physicians/clinics you have been referred to that are listed on the Patient Visit Information form that is included in your discharge packet. Bring any paperwork you were given at discharge with you along with any medications you are taking to your follow up visit. Our treatment cannot replace ongoing medical care by a primary care provider outside of the emergency department. Thank you for allowing the [facility] team to be part of your care today. If you had an X-Ray or CT scan: A Radiologist will review the ED reading if any change in treatment is needed we will contact you. If you had a blood, urine, or wound culture: It will take several days for the results, if any change in treatment is needed we will contact you. If you had an STI test: It will take 48 hours for the results. Please call after 1 week if you have not heard back. Prescriptions: Nitrofurantoin Macrocrystals [Macrobid] 100 mg PO BID 5 Days #10 cap Referrals: Conrad Saravia MD [Staff Provider] - Follow up with primary Paresh Portillo MD [Family Provider] - Follow up with primary [facility] [place] [Outside] - Follow up with primary [facility] [Outside] - Follow up with primary [facility] [Outside] - Follow up with primary Forms: [employer] (Sinhala)
[2018-08-13 11:19] LABS: BASO # 0.02 K/mm3 (0.0-2.0); BASO % 0.3 % (0.0-3.0); EOS # 0.1 (0.0-0.7); EOS % 1.3 % (1.5-5.0); HEMOGLOBIN 13.3 g/dL (12.0-16.0); LYMPH % 32.6 % (22.0-35.0); MEAN CORPUSCULAR HEMOGLOBIN 31.7 pg (25.0-35.0); MEAN PLATELET VOLUME 9.7 fl (7.0-11.0); MONO # 0.6 (0.1-0.6); RBC 4.2 10^6/uL (3.5-6.1); WHITE BLOOD COUNT 6.2 10^3/uL (4.5-11.0)
[2018-08-13 11:22] VITALS: TEMP 98
[2018-08-13 11:29] LABS: ALB/GLOB RATIO 1.4 (1.1-1.8); ALBUMIN 4.9 g/dL (3.0-4.8); ALT/SGPT 34 U/L (7-56); AST/SGOT 38 U/L (14-36); BLOOD UREA NITROGEN 11 mg/dL (7-21); CALCIUM 9.9 mg/dL (8.4-10.5); GFR NON-AFRICAN AMERICAN > 60; LIPASE 218 U/L (23-300)
[2018-08-13] MEDS ORDERED: Iohexol 350 MG/100 ML VIAL ONE (11:38)
[2018-08-13 11:41] LABS: TROPONIN I < 0.01 ng/mL
[2018-08-13 12:09] LABS: PH,URINE 6.5 (4.7-8.0); URINE BILIRUBIN NEGATIVE (NEGATIVE); URINE BLOOD TRACE-LYSED (NEGATIVE); URINE GLUCOSE (UA) NEGATIVE (NEGATIVE); URINE LEUKOCYTE ESTERASE MODERATE Leu/uL (NEGATIVE); URINE PROTEIN NEGATIVE mg/dL (<30 mg/dL); URINE UROBILINOGEN 0.2 E.U./dL (<1 E.U./dL)
[2018-08-13 12:11] LABS: URINE APPEARANCE SL CLOUDY (CLEAR); URINE COLOR YELLOW (YELLOW)
[2018-08-13 12:21] LABS: URINE BACTERIA MANY /hpf
--- NOTE | 2018-08-13 12:25 | CT ---
Date of service: 08/13/2018 PROCEDURE: CT Abdomen and Pelvis with contrast HISTORY: decreased stool caliber, nausea, belly pain COMPARISON: None. TECHNIQUE: Contrast dose: 100 cc of Omni 350 Radiation dose: Total exam DLP = 302.92 mGy-cm. This CT exam was performed using one or more of the following dose reduction techniques: Automated exposure control, adjustment of the mA and/or kV according to patient size, and/or use of iterative reconstruction technique. FINDINGS: LOWER THORAX: Unremarkable. LIVER: Unremarkable. No gross lesion or ductal dilatation. GALLBLADDER AND BILE DUCTS: Gallbladder removed PANCREAS: Unremarkable. No gross lesion or ductal dilatation. SPLEEN: Unremarkable. ADRENALS: Unremarkable. No mass. KIDNEYS AND URETERS: Unremarkable. No hydronephrosis. No solid mass. VASCULATURE: Unremarkable. No aortic aneurysm. Aortic calcification BOWEL: Unremarkable. No obstruction. No gross mural thickening. APPENDIX: Normal appendix. PERITONEUM: Unremarkable. No free fluid. No free air. LYMPH NODES: Unremarkable. No enlarged lymph nodes. BLADDER: Unremarkable. REPRODUCTIVE: Hysterectomy BONES: No acute fracture. OTHER FINDINGS: None. IMPRESSION: Unremarkable contrast enhanced CT of the abdomen and pelvis.
[2018-08-13 12:26] VITALS: BP 122/67; PULSE 66; O2SAT 98
--- NOTE | 2018-08-13 13:59 | CARD ---
APPROVED REPORT Date of service: 08/13/2018 EKG Measurement Heart [id number] <Conclusion> Sinus bradycardia Inferior infarct, age undetermined Abnormal ECG
== END 2018-08-13 13:26 | disposition home or self-care (01) ==
LOC: ED 08:14
DX: N39.0 Urinary tract infection, site not specified (principal); I10 Essential (primary) hypertension; E11.9 Type 2 diabetes mellitus without complications; E78.5 Hyperlipidemia, unspecified
CPT/HCPCS: 74177; 80053; 81001; 83690; 84484; 85025; 87086; 93005; 96374; 96375; 99283; J2405; Q9966; Q9967

== ENCOUNTER 2018-08-19 06:33 | Day surgery (SDC) | payer MEDICARE ==
[2018-08-12 14:27] VITALS: BMI 22.9
[2018-08-19] MEDS ORDERED: Propofol 10 mg/ml Inj (20 ML) ONE (08:01)
[2018-08-19] MEDS ORDERED: Lidocaine 1% Inj (20ml) ONE (08:03)
[2018-08-19] MEDS ORDERED: Sodium Chloride 0.9% 1,000 ML IV SCH (08:45)
[2018-08-19 09:12] VITALS: O2SAT 99
[2018-08-19 09:35] VITALS: RESP 18
[2018-08-19 09:53] VITALS: BP 123/56; PULSE 68; TEMP 98
== END 2018-08-19 10:20 | disposition home or self-care (01) ==
LOC: ENDO 06:33
PROVIDERS: ATTEND Specialist
DX: K59.00 Constipation, unspecified (principal); K57.30 Diverticulosis of large intestine without perforation or abscess without bleeding; K64.8 Other hemorrhoids; E11.9 Type 2 diabetes mellitus without complications; I10 Essential (primary) hypertension; Z87.440 Personal history of urinary (tract) infections; Z90.710 Acquired absence of both cervix and uterus; Z90.49 Acquired absence of other specified parts of digestive tract; Z88.8 Allergy status to other drugs, medicaments and biological substances
CPT/HCPCS: 45378; 82948; J2704; J7030; J7040

== ENCOUNTER 2018-09-15 15:24 | Observation (INO) | payer MEDICARE ==
[2018-09-15] MEDS ORDERED: Sodium Chloride 0.9% 1,000 ML IV STA (15:44)
--- NOTE | 2018-09-15 16:04 | ED PDOC ---
Arrival/HPI - General Chief Complaint: GI Problem Time Seen by Provider: 09/15/18 15:26 Historian: Patient - History of Present Illness Narrative History of Present Illness (Text): 09/15/18 15:26 Patient is an 87 year old female, with a history of hyperlipidemia, hypertension, umbilical hernia, colonoscopy (08/2018, unremarkable), and CT A/P (08/13/2018, unremarkable) sent to the emergency department by Dr. Mishra complaining of decreased bowel frequency and stool size since 2 months. Patient informs visiting Dr. Mayorga in office for current complaint and was sent to ED for concerns of incarcerated umbilical hernia. Patient also notes chronic history of nausea. Patient denies chest pain, shortness of breath, headache, fever, chills, cough, vomiting, diarrhea, dysuria, hematuria, urinary frequency, or any other complaints. Time/Duration: > month (2 months) Symptom Course: Unchanged Activities at Onset: Light Context: Home Past Medical History - Provider Review Nursing Documentation Reviewed: Yes - Infectious Disease Hx of Infectious Diseases: None - Tetanus Immunization Tetanus Immunization: Unknown - Cardiac Hx Pacemaker: No - Pulmonary Hx Respiratory Disorders: No - Neurological Hx Neurological Disorder: No - HEENT Hx HEENT Disorder: No - Renal Hx Renal Disorder: No - Endocrine/Metabolic Hx Endocrine Disorders: Yes Hx Diabetes Mellitus Type 2: Yes - Hematological/Oncological Hx Blood Transfusions: No - Integumentary Hx Dermatological Disorder: No - Musculoskeletal/Rheumatological Hx Musculoskeletal Disorders: No - Gastrointestinal Hx Gastrointestinal Disorders: No - Genitourinary/Gynecological Hx Genitourinary Disorders: No - Psychiatric Hx Emotional Abuse: No Hx Physical Abuse: No Hx Substance Use: No - Past Surgical History Past Surgical History: Unable to Obtain - Surgical History Hx Cholecystectomy: Yes Hx Hysterectomy: Yes - Anesthesia Hx Anesthesia: Yes Hx Anesthesia Reactions: No Hx Malignant Hyperthermia: No - Suicidal Assessment Feels Threatened In Home Enviroment: No Family/Social History - Physician Review Nursing Documentation Reviewed: Yes Family/Social History: No Known Family HX Smoking Status: Never Smoked Hx Alcohol Use: No Hx Substance Use: No Hx Substance Use Treatment: No Allergies/Home Meds Allergies/Adverse Reactions: Allergies erythromycin base Allergy (Verified 07/29/18 10:22) SWELLING Home Medications: Home Meds Medication Instructions Recorded Confirmed Benazepril HCl [Lotensin] 20 mg PO DAILY 03/24/18 08/19/18 MetFORMIN [glucOPHAGE] 500 mg PO BID 03/24/18 08/19/18 Metoprolol Tartrate [Lopressor] 25 mg PO BID 03/24/18 08/19/18 amLODIPine [Norvasc] 10 mg PO DAILY 03/24/18 08/19/18 Polyethylene Glycol 3350 [Miralax] 17 gm PO DAILY 08/12/18 08/19/18 Spironolactone [Aldactone] 25 mg PO DAILY 08/12/18 08/19/18 Review of Systems - Physician Review All systems were reviewed & negative as marked: Yes - Review of Systems Constitutional: absent: Fevers, Other (chills) Respiratory: absent: SOB, Cough Cardiovascular: absent: Chest Pain Gastrointestinal: Nausea, Other (decreased bowel frequency and stool size). absent: Diarrhea, Vomiting Genitourinary Female: absent: Dysuria, Frequency, Hematuria Musculoskeletal: Other (umbilical hernia) Neurological: absent: Headache Physical Exam - Systems Exam Head: Present: Atraumatic, Normocephalic Pupils: Present: PERRL Extroacular Muscles: Present: EOMI Conjunctiva: Present: Normal Mouth: Present: Moist Mucous Membranes Neck: Present: Normal Range of Motion Respiratory/Chest: Present: Clear to Auscultation, Good Air Exchange. No: Respiratory Distress, Accessory Muscle Use, Wheezes, Rales, Rhonchi Cardiovascular: Present: Regular Rate and Rhythm, Normal S1, S2. No: Murmurs, Rub, Gallop Abdomen: Present: Normal Bowel Sounds, Hernias (umbilical hernia w/ normal pink color, soft). No: Tenderness, Distention, Peritoneal Signs Back: Present: Normal Inspection Upper Extremity: Present: Normal Inspection. No: Cyanosis, Edema Lower Extremity: Present: Normal Inspection. No: Edema Neurological: Present: GCS=15, CN II-XII Intact, Speech Normal Skin: Present: Warm, Dry, Normal Color. No: Rashes Psychiatric: Present: Alert, Oriented x 3, Normal Insight, Normal Concentration Medical Decision Making ED Course and Treatment: 09/15/18 15:26 Impression: Patient is an 87 year old female, with a history of hyperlipidemia, hypertension, umbilical hernia, colonoscopy (08/2018, unremarkable), and CT A/P (08/13/2018, unremarkable) sent to the emergency department by Dr. Mishra complaining of decreased bowel frequency and stool size since 2 months. Plan: -- Labs -- IV Fluids -- Zofran -- CT A/P w/ PO and IV contrast -- Reassess and disposition Prior Visits: Notes and results from previous visits were reviewed. Patient was last seen in the emergency department on Progress Notes: 09/15/18 20:[address] Oakes as pending CT results and surgical eval - RAD Interpretation Radiology Orders: 09/15/18 15:44 ABD PELVIS PO & IV CONTRAST [CT] Stat - Medication Orders Current Medication Orders: Sodium Chloride (Sodium Chloride 0.9%) 1,000 mls @ 999 mls/hr IV .Q1H1M STA Stop: 09/15/18 16:44 Discontinued Medications Ondansetron HCl (Zofran Inj) 4 mg IVP STAT STA Stop: 09/15/18 15:45 - Scribe Statement The provider has reviewed the documentation as recorded by the Scribe Oren Ramos All medical record entries made by the Scribe were at my direction and personally dictated by me. I have reviewed the chart and agree that the record accurately reflects my personal performance of the history, physical exam, medical decision making, and the department course for this patient. I have also personally directed, reviewed, and agree with the discharge instructions and disposition. Disposition/Present on Arrival - Present on Arrival Any Indicators Present on Arrival: No History of DVT/PE: No History of Uncontrolled Diabetes: No Urinary Catheter: No History of Decub. Ulcer: No History Surgical Site Infection Following: None - Disposition Have Diagnosis and Disposition been Completed?: Yes Diagnosis: Constipation Disposition Time: 20:27 Condition: FAIR Forms: [employer] (Czech)
[2018-09-15] MEDS ORDERED: Iohexol 240 (50 ml) ONE (16:20)
[2018-09-15 16:31] LABS: BASO # 0.02 K/mm3 (0.0-2.0); BASO % 0.3 % (0.0-3.0); EOS # 0.1 (0.0-0.7); HEMOGLOBIN 12.1 g/dL (12.0-16.0); LYMPH # 1.9 (1.2-3.4); LYMPH % 31.6 % (22.0-35.0); MEAN CELL VOLUME 95.3 fl (80.0-105.0); MEAN CORPUSCULAR HEMOGLOBIN 31.4 pg (25.0-35.0); MEAN PLATELET VOLUME 9.9 fl (7.0-11.0); MONO # 0.4 (0.1-0.6); MONO % 6.1 % (1.0-6.0); RBC 3.85 10^6/uL (3.5-6.1); RED CELL DISTRIBUTION WIDTH 12.8 % (11.5-14.5)
[2018-09-15 16:35] LABS: INR 1.05; PROTHROMBIN TIME 11.6 SECONDS (9.4-12.5)
[2018-09-15 16:37] LABS: ALB/GLOB RATIO 1.5 (1.1-1.8); ALBUMIN 4.5 g/dL (3.0-4.8); ALT/SGPT 38 U/L (7-56); AST/SGOT 28 U/L (14-36); BLOOD UREA NITROGEN 13 mg/dL (7-21); CALCIUM 10.1 mg/dL (8.4-10.5); GFR NON-AFRICAN AMERICAN > 60; LIPASE 194 U/L (23-300)
--- NOTE | 2018-09-15 17:15 | CP.PCM.CON ---
<Annabella Vazquez - Last Filed: 09/15/18 20:52> History of Present Illness - History of Present Illness History of Present Illness: General Surgery Dr. Mishra 87 y/o F w/ PMHx HTN and DM2 presents to the ED at the direction of Dr. Mishra c/o abd pain and nausea. Pt reports symptoms began ~2mons ago, w/o relief. Pain is described as pinching, crampy feeling that shifts location. Pain is intermittent and not associated w/ PO intake. Nothing has been noted to make pain worse and in the past pain was relived w/ PO Tylenol. Pt admits to associated nausea w/o vomiting as well as worsening constipation. Pt underwent colonoscopy 08/[address] Saravia for evaluation of constipation/obstipation; pt was found to have diverticulosis and hemorrhoids. Pt was referred by PMD for general surgery evaluation of reducible umbilical hernia as possible cause of GI symptoms. Pt belives symptoms started around the same time as starting Spironolactone. Of note, pt also reports episodes of tachycardia, high blood pressure, and flushing that occur multiple times per day and self-resolve. Pt also admits to and 11lb weight loss within the last few weeks. Pt had blood work performed in the ED which was remarkable only for BG 200. CTA/P w/ PO & IV contrast is pending. PMHx: see above Meds: reviewed in chart ALL: erythromycin PSHx: hysterectomy, cholecystectomy SHx: lives alone, denies tobacco, EtOH, drug use FHx: noncontributory Review of Systems - Review of Systems All systems: reviewed and no additional remarkable complaints except (see HPI) Past Patient History - Infectious Disease Hx of Infectious Diseases: None - Tetanus Immunizations Tetanus Immunization: Unknown - Past Social History Smoking Status: Never Smoked - CARDIAC Hx Pacemaker: No - PULMONARY Hx Respiratory Disorders: No - NEUROLOGICAL Hx Neurological Disorder: No - HEENT Hx HEENT Problems: No - RENAL Hx Chronic Kidney Disease: No - ENDOCRINE/METABOLIC Hx Endocrine Disorders: Yes Hx Diabetes Mellitus Type 2: Yes - HEMATOLOGICAL/ONCOLOGICAL Hx Blood Transfusions: No - INTEGUMENTARY Hx Dermatological Problems: No - MUSCULOSKELETAL/RHEUMATOLOGICAL Hx Musculoskeletal Disorders: No - GASTROINTESTINAL Hx Gastrointestinal Disorders: No - GENITOURINARY/GYNECOLOGICAL Hx Genitourinary Disorders: No - PSYCHIATRIC Hx Emotional Abuse: No Hx Physical Abuse: No Hx Substance Use: No - SURGICAL HISTORY Hx Cholecystectomy: Yes Hx Hysterectomy: Yes - ANESTHESIA Hx Anesthesia: Yes Hx Anesthesia Reactions: No Hx Malignant Hyperthermia: No Meds Allergies/Adverse Reactions: Allergies Allergy/AdvReac Type Severity Reaction Status Date / Time erythromycin base Allergy Intermediate SWELLING Verified 09/16/18 02:41 Physical Exam - Constitutional Appears: Non-toxic, No Acute Distress - Head Exam Head Exam: NORMAL INSPECTION - Eye Exam Eye Exam: Normal appearance - ENT Exam ENT Exam: Mucous Membranes Moist - Respiratory Exam Respiratory Exam: NORMAL BREATHING PATTERN. absent: Accessory Muscle Use, Respiratory Distress - Cardiovascular Exam Cardiovascular Exam: REGULAR RHYTHM. absent: Bradycardia, Tachycardia - GI/Abdominal Exam GI & Abdominal Exam: Hernia (reducible umbilical hernia, ~1cm defect), Soft. absent: Distended, Firm, Guarding, Rebound, Rigid, Tenderness - Extremities Exam Extremities exam: Positive for: normal inspection - Neurological Exam Neurological exam: Alert, Oriented x3 - Psychiatric Exam Psychiatric exam: Normal Affect, Normal Mood - Skin Skin Exam: Dry, Intact, Normal Color, Warm Results - Vital Signs Recent Vital Signs: Last Vital Signs Temp 98.2 F 09/15/18 16:18 Pulse 72 09/15/18 16:18 Resp 17 09/15/18 16:18 BP 119/67 09/15/18 16:18 Pulse Ox 97 09/15/18 16:18 - Labs Result Diagrams: 09/15/18 16:21 09/15/18 16:21 Labs: Laboratory Results - last 24 hr 09/15/18 09/15/18 09/15/18 16:02 16:21 16:21 WBC 6.0 RBC 3.85 Hgb 12.1 Hct 36.7 MCV 95.3 MCH 31.4 MCHC 33.0 RDW 12.8 Plt Count 232 MPV 9.9 Neut % (Auto) 61.0 Lymph % (Auto) 31.6 [place] % (Auto) 6.1 H Eos % (Auto) 1.0 L Baso % (Auto) 0.3 Lymph # (Auto) 1.9 [place] # (Auto) 0.4 Eos # (Auto) 0.1 Baso # (Auto) 0.02 Absolute Neuts (auto) 3.67 PT 11.6 INR 1.05 APTT 28.0 Sodium Potassium Chloride Carbon Dioxide Anion Gap BUN Creatinine Est GFR ( Amer) Est GFR (Non-Af Amer) Random Glucose Calcium Total Bilirubin AST ALT Alkaline Phosphatase Total Protein Albumin Globulin Albumin/Globulin Ratio Lipase BBK History Checked No verified bt 09/15/18 16:21 WBC RBC Hgb Hct MCV MCH MCHC RDW Plt Count MPV Neut % (Auto) Lymph % (Auto) [place] % (Auto) Eos % (Auto) Baso % (Auto) Lymph # (Auto) [place] # (Auto) Eos # (Auto) Baso # (Auto) Absolute Neuts (auto) PT INR APTT Sodium 140 Potassium 4.5 Chloride 102 Carbon Dioxide 27 Anion Gap 15 BUN 13 Creatinine 0.8 Est GFR ( Amer) > 60 Est GFR (Non-Af Amer) > 60 Random Glucose 200 H Calcium 10.1 Total Bilirubin 0.5 AST 28 ALT 38 Alkaline Phosphatase 81 Total Protein 7.6 Albumin 4.5 Globulin 3.1 Albumin/Globulin Ratio 1.5 Lipase 194 BBK History Checked - Imaging and Cardiology CT scan - abdomen Status: Pending Assessment & Plan - Assessment and Plan (Free Text) Assessment: 87 y/o F w/ abd pain and nausea Plan: - f/u CTAP w/ IV & PO contrast --> no acute pathology - pt cleared for discharge from surgical standpoint - cont home bowel regimen - pt should follow up with Dr. Mishra and Dr. Saravia Pt discussed w/ Dr. Danica Vazquez PGY3 <Geovany Mishra - Last Filed: 09/16/18 19:41> Results - Vital Signs Recent Vital Signs: Last Vital Signs Temp 98.4 F 09/16/18 09:45 Pulse 66 09/16/18 10:06 Resp 16 09/16/18 09:45 BP 126/68 09/16/18 10:06 Pulse Ox 99 09/16/18 09:45 - Labs Result Diagrams: 09/15/18 16:21 09/15/18 16:21 Labs: Laboratory Results - last 24 hr 09/15/18 09/16/18 09/16/18 16:32 08:44 12:15 POC Glucose (mg/dL) 173 H 196 H Blood Type Confirm O POSITIVE Assessment & Plan - Assessment and Plan (Free Text) Plan: Patient was seen, evaluated and examined by me at the bedside. I agree with assessment and plan as stated in the resident's note.
[2018-09-15] MEDS ORDERED: Iohexol 350 MG/100 ML VIAL ONE (18:33)
--- NOTE | 2018-09-15 21:35 | ED PDOC ---
Physical Exam Vital Signs Temp Pulse Resp BP Pulse Ox 09/15/18 21:34 69 18 145/75 100 09/15/18 16:18 98.2 F 72 17 119/67 97 Medical Decision Making ED Course and Treatment: 09/15/18 20:25 Case endorsed to me by Dr. Rader, pending CT results, surgical evaluation, and disposition. 09/15/18 20:30 CT Abdomen and Pelvis: LUNG BASES: The lung bases appear clear. No pleural effusions are seen. LIVER: Unremarkable. GALLBLADDER AND BILE DUCTS: Status post cholecystectomy. No biliary ductal dilatation is evident. PANCREAS: Unremarkable. SPLEEN: Unremarkable. ADRENAL GLANDS: Unremarkable. KIDNEYS, URETERS, AND BLADDER: The kidneys appear within normal limits. Incidental note is made of a 1.1 cm cortical cyst in the lateral mid left renal pole. There is no hydronephrosis or hydroureter. No urinary calculi are seen. The urinary bladder appears normal in size and configuration. STOMACH AND BOWEL: The oral contrast agent is seen to have completely traversed the gastrointestinal tract. Unremarkable appearance of the stomach and bowel. No evidence of bowel obstruction. No evidence suggesting enteritis or colitis. APPENDIX: No evidence of acute appendicitis on CT examination. PERITONEUM: No free fluid. No free air. There is a small umbilical hernia noted which contains fat. LYMPH NODES: No lymphadenopathy is evident. REPRODUCTIVE: Not visualized. Status post hysterectomy. VASCULATURE: No evidence of abdominal aortic aneurysm. There is extensive atherosclerotic vascular plaquing present. BONES: No aggressive appearing osseous lesion. No acute osseous pathology evident. IMPRESSION: 1. No acute intra-abdominal or pelvic abnormality. 2. Status post cholecystectomy. 3. Small umbilical hernia containing fat. 4. Status post hysterectomy. Electronically signed on September 15, 2018 8:23:55 PM EDT by: Oren Castillo M.D., M.B.A., Certified By [employer] Trained MRI and CT Specialist 09/15/18 22:[address] Pitts, who is aware and agrees with plan. Accepts pt in to his service. Pt will go to [facility] observation for abdominal pain. - Lab Interpretations Lab Results: PT 11.6 SECONDS (9.4-12.5) 09/15/18 16:21 INR 1.05 09/15/18 16:21 APTT 28.0 Seconds (26.9-38.3) 09/15/18 16:21 Total Bilirubin 0.5 mg/dL (0.2-1.3) 09/15/18 16:21 AST 28 U/L (14-36) 09/15/18 16:21 ALT 38 U/L (7-56) 09/15/18 16:21 Alkaline Phosphatase 81 U/L (38-126) 09/15/18 16:21 Total Protein 7.6 g/dL (5.8-8.3) 09/15/18 16:21 Albumin 4.5 g/dL (3.0-4.8) 09/15/18 16:21 Globulin 3.1 gm/dL 09/15/18 16:21 Albumin/Globulin Ratio 1.5 (1.1-1.8) 09/15/18 16:21 Lipase 194 U/L (23-300) 09/15/18 16:21 - RAD Interpretation Radiology Orders: 09/15/18 15:44 ABD PELVIS PO & IV CONTRAST [CT] Stat Mailroom Clerk: Radiologist - Medication Orders Current Medication Orders: Discontinued Medications Sodium Chloride (Sodium Chloride 0.9%) 1,000 mls @ 999 mls/hr IV .Q1H1M STA Stop: 09/15/18 16:44 Last Admin: 09/15/18 16:14 Dose: 999 mls/hr eMAR Start Stop Document 09/15/18 16:14 MR (Rec: 09/15/18 16:14 [email or web address]) Intravenous Solution Start Date 09/15/18 Start Time 16:14 End Date 09/15/18 End time 17:14 Total Infusion Time 60 Ondansetron HCl (Zofran Inj) 4 mg IVP STAT STA Stop: 09/15/18 15:45 Last Admin: 09/15/18 16:14 Dose: 4 mg IVP Administration Document 09/15/18 16:14 MR (Rec: 09/15/18 16:14 [email or web address]) Charges for Administration # of IVP Administrations 1 Disposition/Present on Arrival - Present on Arrival Any Indicators Present on Arrival: No History of DVT/PE: No History of Uncontrolled Diabetes: No Urinary Catheter: No History of Decub. Ulcer: No History Surgical Site Infection Following: None - Disposition Have Diagnosis and Disposition been Completed?: Yes Diagnosis: Constipation, Abdominal pain Disposition: HOSPITALIZED Disposition Time: 22:25 Patient Problems: Current Active Problems Problem Status Onset Abdominal pain Acute Constipation Acute Condition: FAIR
[2018-09-16] MEDS ORDERED: Dextrose 5%/0.45% NS 1,000 ML IV SCH (00:15)
[2018-09-16 02:27] VITALS: BMI 21.4
[2018-09-16] MEDS ORDERED: Pneumococcal 23-Valent Vaccine IM ONE (02:27)
--- NOTE | 2018-09-16 08:29 | CP.PCM.HP ---
<KevJohn - Last Filed: 09/16/18 11:55> History of Present Illness - History of Present Illness History of Present Illness: John Angulo D.O. PGY-3, Internal Medicine Resident, Dr. Pitts's Service, H&P CC: nausea and abdominal discomfort for 2 months 87-year-old female with a past medical history of hypertension, hyperlipidemia, diabetes, and umbilical hernia who presented for abdominal discomfort and nausea and concerns of a possibly incarcerated umbilical hernia. Patient states that she went to go see Dr. Mishra and was told to come to the emergency room. Patient relates that for approximately 2 months she has been having issues with her stools. Describes them as pencil thin, sometimes just very small pieces/"radha" which is out of the norm for her. Patient also became concerned that she has had an approximately 11 pound weight loss over the last couple of weeks. Patient notes that she has postprandial nausea and abdominal discomfort although she says is not painful but just a sensation associated with the nausea. Patient has had an umbilical hernia now for many years and states it's never bothered her. Patient notes that she's had some episodes of flushing at home and that during these episodes she has elevated blood pressures. Denies any fevers, chills, vomiting, diarrhea, lightheadedness, dysuria, hematuria, urinary frequency, headache, or any other complaints. Denies any change in her diet. Denies any recent travel. Denies any recent change in her diet in any way that she can think of. PMH: As above PSH: Cholecystectomy, hysterectomy SH: Denies EtOH, tobacco, illicit drug use FH: Noncontributory Meds: Reviewed Allergies: miamycin Present on Admission - Present on Admission Any Indicators Present on Admission: No Review of Systems - Review of Systems All systems: reviewed and no additional remarkable complaints except (as per HPI) Past Patient History - Infectious Disease Hx of Infectious Diseases: None - Tetanus Immunizations Tetanus Immunization: Unknown - Past Social History Smoking Status: Never Smoked - CARDIAC Hx Cardiac Disorders: Yes Hx Hypercholesterolemia: Yes Hx Hypertension: Yes Hx Pacemaker: No - PULMONARY Hx Respiratory Disorders: No - NEUROLOGICAL Hx Neurological Disorder: No - HEENT Hx HEENT Problems: Yes Hx Cataracts: Yes - RENAL Hx Chronic Kidney Disease: No - ENDOCRINE/METABOLIC Hx Endocrine Disorders: Yes Hx Diabetes Mellitus Type 2: Yes - HEMATOLOGICAL/ONCOLOGICAL Hx Blood Disorders: No - INTEGUMENTARY Hx Dermatological Problems: No - MUSCULOSKELETAL/RHEUMATOLOGICAL Hx Musculoskeletal Disorders: Yes Hx Falls: Yes (slipped on wet floor - no injury) - GASTROINTESTINAL Hx Gastrointestinal Disorders: Yes Hx Gall Bladder Disease: Yes Other/Comment: diverticulosis - GENITOURINARY/GYNECOLOGICAL Hx Genitourinary Disorders: No - PSYCHIATRIC Hx Psychophysiologic Disorder: No Hx Emotional Abuse: No Hx Physical Abuse: No Hx Substance Use: No - SURGICAL HISTORY Hx Surgeries: Yes Hx Cholecystectomy: Yes Hx Hysterectomy: Yes - ANESTHESIA Hx Anesthesia: Yes Hx Anesthesia Reactions: No Hx Malignant Hyperthermia: No Meds Allergies/Adverse Reactions: Allergies Allergy/AdvReac Type Severity Reaction Status Date / Time erythromycin base Allergy Intermediate SWELLING Verified 09/16/18 02:41 Physical Exam - Constitutional Appears: Non-toxic, No Acute Distress - Head Exam Head Exam: ATRAUMATIC, NORMOCEPHALIC - Eye Exam Eye Exam: EOMI. absent: Scleral icterus - ENT Exam ENT Exam: Mucous Membranes Moist, Normal Oropharynx - Neck Exam Neck exam: Positive for: Normal Inspection. Negative for: Lymphadenopathy - Respiratory Exam Respiratory Exam: Clear to Auscultation Bilateral. absent: Rales, Rhonchi, Wheezes - Cardiovascular Exam Cardiovascular Exam: RRR, +S1, +S2. absent: Gallop, Rubs - GI/Abdominal Exam GI & Abdominal Exam: Hernia (umbilical ~1cm, reducible), Normal Bowel Sounds, So ft. absent: Distended, Tenderness - Extremities Exam Extremities exam: Positive for: normal capillary refill, normal inspection. Negative for: calf tenderness - Neurological Exam Neurological exam: Alert, CN II-XII Intact, Oriented x3 - Psychiatric Exam Psychiatric exam: Normal Affect, Normal Mood - Skin Skin Exam: Dry, Intact, Warm Results - Vital Signs Recent Vital Signs: Last Vital Signs Temp 98 F 09/16/18 07:44 Pulse 79 09/16/18 07:44 Resp 20 09/16/18 07:44 BP 156/74 H 09/16/18 07:44 Pulse Ox 97 09/16/18 07:44 - Labs Result Diagrams: 09/15/18 16:21 09/15/18 16:21 Labs: Laboratory Results - last 24 hr 09/15/18 09/15/18 09/15/18 16:02 16:21 16:21 WBC 6.0 RBC 3.85 Hgb 12.1 Hct 36.7 MCV 95.3 MCH 31.4 MCHC 33.0 RDW 12.8 Plt Count 232 MPV 9.9 Neut % (Auto) 61.0 Lymph % (Auto) 31.6 [place] % (Auto) 6.1 H Eos % (Auto) 1.0 L Baso % (Auto) 0.3 Lymph # (Auto) 1.9 [place] # (Auto) 0.4 Eos # (Auto) 0.1 Baso # (Auto) 0.02 Absolute Neuts (auto) 3.67 PT 11.6 INR 1.05 APTT 28.0 Sodium Potassium Chloride Carbon Dioxide Anion Gap BUN Creatinine Est GFR ( Amer) Est GFR (Non-Af Amer) Random Glucose Calcium Total Bilirubin AST ALT Alkaline Phosphatase Total Protein Albumin Globulin Albumin/Globulin Ratio Lipase Blood Type O POSITIVE Blood Type Confirm Antibody Screen Negative BBK History Checked No verified bt 09/15/18 09/15/18 16:21 16:32 WBC RBC Hgb Hct MCV MCH MCHC RDW Plt Count MPV Neut % (Auto) Lymph % (Auto) [place] % (Auto) Eos % (Auto) Baso % (Auto) Lymph # (Auto) [place] # (Auto) Eos # (Auto) Baso # (Auto) Absolute Neuts (auto) PT INR APTT Sodium 140 Potassium 4.5 Chloride 102 Carbon Dioxide 27 Anion Gap 15 BUN 13 Creatinine 0.8 Est GFR ( Amer) > 60 Est GFR (Non-Af Amer) > 60 Random Glucose 200 H Calcium 10.1 Total Bilirubin 0.5 AST 28 ALT 38 Alkaline Phosphatase 81 Total Protein 7.6 Albumin 4.5 Globulin 3.1 Albumin/Globulin Ratio 1.5 Lipase 194 Blood Type Blood Type Confirm O POSITIVE Antibody Screen BBK History Checked Assessment & Plan - Assessment and Plan (Free Text) Assessment: 87-year-old female with a past medical history of hypertension, hyperlipidemia, diabetes, and umbilical hernia who presented for abdominal discomfort and nausea and concerns of a possibly incarcerated umbilical hernia. Plan: 1. Abdominal discomfort with nausea and constipation 2. Umbilical hernia 3. Hypertension 4. Hyperlipidemia 5. Diabetes mellitus type 2 Patient had a colonoscopy with Dr. Saravia on 08/19/2018 with findings of diverticulosis and internal hemorrhoids. Patient also had a CAT scan of the abdomen and pelvis with contrast which did not show any abnormalities other than her umbilical hernia. Preliminary read on CT abdomen and pelvis from yesterday also just notes the umbilical hernia and no other findings. P.O. contrast was seen throughout the GI tract. GI consulted, patient is NPO for endoscopy this morning. Surgery has been consulted, note reviewed and recommendations appreciated. Home spironolactone, metoprolol, amlodipine will be continued. Lipase was normal. Continue as needed Reglan for nausea. We will start Accu- Cheks and low insulin sliding scale. Patient was seen and examined and case to be discussed with attending physician. - Date & Time Date: 09/16/18 Time: 07:00 <Frank Pitts S - Last Filed: 09/16/18 21:21> Results - Vital Signs Recent Vital Signs: Last Vital Signs Temp 98.4 F 09/16/18 09:45 Pulse 66 09/16/18 10:06 Resp 16 09/16/18 09:45 BP 126/68 09/16/18 10:06 Pulse Ox 99 09/16/18 09:45 - Labs Result Diagrams: 09/15/18 16:21 09/15/18 16:21 Labs: Laboratory Results - last 24 hr 09/16/18 09/16/18 08:44 12:15 POC Glucose (mg/dL) 173 H 196 H Assessment & Plan - Assessment and Plan (Free Text) Plan: Pt seen and examined by me. I have reviewed the note of the medical billing associate and I agree with it. I have discussed the assessment and plan with the resident. I have reviewed the medications and the last labs.
[2018-09-16 08:37] VITALS: RESP 16; TEMP 98.4
--- NOTE | 2018-09-16 09:00 | CP.PCM.PN ---
<Roberto Reich - Last Filed: 09/16/18 13:31> Subjective - Date & Time of Evaluation Date of Evaluation: 09/16/18 Time of Evaluation: 08:57 - Subjective Subjective: PGY1 General Surgery Progress Note for Dr. Mishra Patient seen and evaluated at bedside this morning. No acute events overnight. No new complaints. Patient NPO at this time on IVF. Patient denies bouts of diarrhea overnight. Per Patient, abdominal pain resolved. Patient otherwise denies chest pain, shortness of breath, fever, chills, headache, and/or rash. Objective - Vital Signs/Intake and Output Vital Signs (last 24 hours): Temp Pulse Resp BP Pulse Ox 98.4 F 106 H 16 162/88 H 97 09/16/18 08:21 09/16/18 08:21 09/16/18 08:21 09/16/18 08:21 09/16/18 08:21 Intake and Output: 09/16/18 09/16/18 06:59 18:59 Intake Total 525 Balance 525 - Medications Medications: Current Medications Amlodipine Besylate (Norvasc) 10 mg PO DAILY [facility] Dextrose/Sodium Chloride (Dextrose 5%/0.45% Ns 1000 Ml) 1,000 mls @ 83 mls/hr IV .Q12H3M [facility] Last Admin: 09/16/18 01:57 Dose: 83 mls/hr Insulin Human Regular (Humulin R Low) 0 units SC ACHS [facility]; Protocol Metoclopramide HCl (Reglan) 5 mg IVP Q8 PRN PRN Reason: nausea Metoprolol Tartrate (Lopressor) 25 mg PO BID [facility] Polyethylene Glycol (Miralax) 17 gm PO BID [facility] Spironolactone (Aldactone) 25 mg PO DAILY [facility] - Labs Labs: 09/15/18 16:21 09/15/18 16:21 PT 11.6 SECONDS (9.4-12.5) 09/15/18 16:21 INR 1.05 09/15/18 16:21 APTT 28.0 Seconds (26.9-38.3) 09/15/18 16:21 - Additional Findings Additional findings: - Constitutional Appears: Non-toxic, No Acute Distress - Head Exam Head Exam: NORMAL INSPECTION - Eye Exam Eye Exam: Normal appearance - ENT Exam ENT Exam: Mucous Membranes Moist - Respiratory Exam Respiratory Exam: NORMAL BREATHING PATTERN. absent: Accessory Muscle Use, Respiratory Distress - Cardiovascular Exam Cardiovascular Exam: REGULAR RHYTHM. absent: Bradycardia, Tachycardia - GI/Abdominal Exam GI & Abdominal Exam: Hernia (reducible umbilical hernia, ~1cm defect), Soft. absent: Distended, Firm, Guarding, Rebound, Rigid, Tenderness - Extremities Exam Extremities exam: Positive for: normal inspection - Neurological Exam Neurological exam: Alert, Oriented x3 - Psychiatric Exam Psychiatric exam: Normal Affect, Normal Mood - Skin Skin Exam: Dry, Intact, Normal Color, Warm Assessment and Plan - Assessment and Plan (Free Text) Assessment: 87 y/o F w/ abd pain and nausea; resolved Plan: - Patient to be scoped today, per Dr. Saravia; Follow-up regarding findings - f/u CTAP w/ IV & PO contrast; no acute pathology - Patient cleared for discharge from surgical standpoint - Continue home bowel regimen - Further recommendations, per Dr. Danica Reich PGY1 <Geovany Mishra - Last Filed: 09/16/18 19:39> Objective - Vital Signs/Intake and Output Vital Signs (last 24 hours): Temp Pulse Resp BP Pulse Ox 98.4 F 66 16 126/68 99 09/16/18 09:45 09/16/18 10:06 09/16/18 09:45 09/16/18 10:06 09/16/18 09:45 - Labs Labs: 09/15/18 16:21 09/15/18 16:21 PT 11.6 SECONDS (9.4-12.5) 09/15/18 16:21 INR 1.05 09/15/18 16:21 APTT 28.0 Seconds (26.9-38.3) 09/15/18 16:21 Assessment and Plan - Assessment and Plan (Free Text) Plan: Patient was seen, evaluated and examined by me at the bedside. I agree with assessment and plan as stated in the resident's note.
[2018-09-16] MEDS ORDERED: Propofol 10 mg/ml Inj (20 ML) ONE (09:04)
--- NOTE | 2018-09-16 09:14 | CT ---
Date of service: 09/15/2018 PROCEDURE: CT Abdomen and Pelvis with contrast HISTORY: abdominal pain, umbilical hernia COMPARISON: None. TECHNIQUE: Contrast dose: 94 cc of Omni 350 Radiation dose: Total exam DLP = 389.21 mGy-cm. This CT exam was performed using one or more of the following dose reduction techniques: Automated exposure control, adjustment of the mA and/or kV according to patient size, and/or use of iterative reconstruction technique. FINDINGS: LOWER THORAX: Unremarkable. LIVER: Unremarkable. No gross lesion or ductal dilatation. GALLBLADDER AND BILE DUCTS: Gallbladder removed PANCREAS: Unremarkable. No gross lesion or ductal dilatation. SPLEEN: Unremarkable. ADRENALS: Unremarkable. No mass. KIDNEYS AND URETERS: Unremarkable. No hydronephrosis. No solid mass. VASCULATURE: Unremarkable. No aortic aneurysm. No aortic atherosclerotic calcification or mural plaque present. BOWEL: Unremarkable. No obstruction. No gross mural thickening. APPENDIX: Normal appendix. PERITONEUM: Unremarkable. No free fluid. No free air. There is a small fat containing umbilical hernia LYMPH NODES: Unremarkable. No enlarged lymph nodes. BLADDER: Unremarkable. REPRODUCTIVE: Hysterectomy BONES: No acute fracture. OTHER FINDINGS: The report concurs with the preliminary [facility] report IMPRESSION: No acute intra-abdominal findings
[2018-09-16] MEDS ORDERED: Sodium Chloride 0.9% 1,000 ML IV SCH (09:30)
[2018-09-16 09:33] VITALS: O2SAT 99
[2018-09-16] MEDS ORDERED: POLYETHYLENE GLYCOL 3350 17 GM/Dose PACKET PO SCH (10:00)
[2018-09-16] MEDS ORDERED: Pantoprazole 40 mg EC Tab PO SCH (10:00)
[2018-09-16 10:07] VITALS: BP 126/68; PULSE 66
[2018-09-16] MEDS ORDERED: Insulin Reg-LOW-Coverage SC SCH (11:30)
--- NOTE | 2018-09-16 12:11 | CON ---
DATE: 09/16/2018 GASTROENTEROLOGY CONSULTATION REQUESTING PHYSICIAN: Dr. Mishra. REASON FOR CONSULTATION: I have been asked to see this 87-year-old female, with a history of hypertension, type 2 diabetes mellitus, chronic constipation, with a 2-month history of vague, diffuse abdominal pain associated with loss of appetite and nausea. Due to the nausea, the patient's oral intake has been diminished. She has lost approximately 10 pounds over the last several months. CT scan of the abdomen and pelvis performed in the emergency room revealed diverticulosis with a small umbilical hernia containing fat. She denies any vomiting, fevers, chills, rectal bleeding, or melena. She did have a colonoscopy back in 08/2018 which revealed diverticulosis and hemorrhoids. PAST MEDICAL HISTORY: Notable for type 2 diabetes mellitus, hypertension, and hyperlipidemia. PAST SURGICAL HISTORY: Notable for cholecystectomy and hysterectomy. SOCIAL HISTORY: She denies cigarette smoking or alcohol use. FAMILY HISTORY: Noncontributory. REVIEW OF SYSTEMS: A 14-point review of systems is notable for diffuse abdominal pain and nausea. HOME MEDICATIONS: Medications at home include metoprolol, metformin, Lotensin, amlodipine, Aldactone, and polyethylene glycol. PHYSICAL EXAMINATION: GENERAL: Elderly female lying in bed, in no acute distress. VITAL SIGNS: Reveal temperature of 98.4, blood pressure 162/88, heart rate of 106. HEENT: Reveal sclerae to be white and conjunctivae to be pink. NECK: Supple. CHEST: Lungs are clear. HEART: Exam reveals regular rate and rhythm. ABDOMEN: Soft, nontender. No mass. EXTREMITIES: Show no edema. LABORATORY DATA: Reveal white blood cell count of 6, hemoglobin 12.1. Chemistries reveal blood sugar of 200, AST, ALT, alk phos were all normal. IMPRESSION: This is an 87-year-old female with a vague, diffuse abdominal pain associated with nausea, loss of appetite, and a 10-pound weight loss over the last several months. Computed tomography scan of the abdomen and pelvis did not show any evidence of mass or suspicious malignant-appearing lesions throughout the gastrointestinal tract. RECOMMENDATIONS: We will arrange for an upper endoscopy this morning. Conrad Saravia MD Psychiatric # [id number]
--- NOTE | 2018-09-16 23:43 | DS ---
HOSPITAL COURSE: The patient was seen and examined. I do agree with the note of the senior medical director. I was involved in the plan of care. The patient has abdominal pain. The abdominal pain is improved. The patient had a biopsy and the results are pending. She went for an endoscopy and it showed ulcers. She is currently feeling well. The patient has a small umbilical hernia. I did speak to Dr. Mishra regarding the case. No further intervention is needed. The patient is going to be on Aldactone, amlodipine, and metoprolol for the hypertension. She had a CT done that I did review. She had diabetes type 2 and had been placed on insulin sliding scale. She has been cleared to be discharged by Dr. Sharma and by Dr. Mishra. Frank Pitts MD
== END 2018-09-16 15:42 | disposition home or self-care (01) ==
LOC: ED 15:24 → ERH 22:41 → 3RNO 09-16 00:54
PROVIDERS: ADMIT Internal Medicine Nephrology; ATTEND Internal Medicine Nephrology
DX: R10.9 Unspecified abdominal pain (principal); K26.9 Duodenal ulcer, unspecified as acute or chronic, without hemorrhage or perforation; K42.9 Umbilical hernia without obstruction or gangrene; K44.9 Diaphragmatic hernia without obstruction or gangrene; K20.9 Esophagitis, unspecified; K29.50 Unspecified chronic gastritis without bleeding; B96.81 Helicobacter pylori [H. pylori] as the cause of diseases classified elsewhere; K59.00 Constipation, unspecified; I10 Essential (primary) hypertension; K64.8 Other hemorrhoids; K57.90 Diverticulosis of intestine, part unspecified, without perforation or abscess without bleeding; E78.5 Hyperlipidemia, unspecified; R11.0 Nausea; Z79.84 Long term (current) use of oral hypoglycemic drugs; E11.9 Type 2 diabetes mellitus without complications
CPT/HCPCS: 43239; 74177; 80053; 82948; 83690; 85025; 85610; 85730; 86850; 86900; 88305; 88312; 88342; 96361; 96374; 99285; G0378; J2405; J2704; J7030; J7040; J7042; Q9966; Q9967